=== PATIENT | female | born 1980 | race Hispanic/Latino ===

== ENCOUNTER 2018-06-27 20:01 | Emergency (ER) | payer OTHER, SELFPAY ==
[2018-06-27 21:04] LABS: Absolute Lymphocytes (CBC) 3.2 K/uL (0.7-4.9); Absolute Monocytes 0.6 K/uL (0.1-1.3); Absolute Neutrophil 5.5 K/uL (1.8-8.0); Basophils % 0.7 % (0-1.3); Eosinophils % 1.3 % (0-4.4); Hematocrit 39.6 % (36.0-45.0); Lymphocytes % 33.4 % (15.3-44.8); MCH 34.3 pg (27.0-35.0); MCV 94.8 fL (80-100); MPV 9.5 fL (7.6-11.3); Monocytes % 6.2 % (3.3-12.3); RBC Red Blood Cell Count 4.17 M/uL (3.86-4.86)
[2018-06-27 21:08] LABS: Protime INR 0.9
[2018-06-27 21:23] LABS: ALT/SGPT 23 U/L (12-78); AST/SGOT 18 U/L (15-37); Albumin 3.3 g/dL (3.4-5.0); Alkaline Phosphatase 84 U/L (45-117); BUN Blood Urea Nitrogen 7 mg/dL (7-18); Bicarbonate 27 mmol/L (21-32); Bilirubin Direct < 0.1 mg/dL (0-0.2); Bilirubin Total 0.3 mg/dL (0.2-1.0); CKMB Creatine Kinase MB < 1.0 ng/mL (0.3-3.6); Creatine Phosphokinase 51 U/L (26-192); Glucose Level 87 mg/dL (74-106); Magnesium 1.9 mg/dL (1.8-2.4); Protein, Total 7.1 g/dL (6.4-8.2); Sodium Level 140 mmol/L (136-145); Troponin (Emerg Dept Use Only) < 0.02 ng/mL (0.0-0.045)
--- NOTE | 2018-06-27 21:24 | RAD REPORT ---
EXAM DESCRIPTION: RAD - Chest Single View - 06/27/2018 9:19 pm CLINICAL HISTORY: Chest pain COMPARISON: None. TECHNIQUE: AP portable chest image was obtained 2115 hours . FINDINGS: Lungs are clear. Heart and vasculature are normal. No measurable pleural effusion and no p neumothorax. No gross bony abnormality seen. No acute aortic findings suspected. IMPRESSION: No acute cardiopulmonary process.
--- NOTE | 2018-06-27 21:56 | EDPHYS ---
Physician Documentation [facility] Name: Celina Mcbride Age: 38 yrs Sex: Female : 1980 Arrival Date: 06/27/2018 Time: 20:02 Bed 17 Private MD: Duglas Parada T ED Physician Geovanni Davis HPI: 06/27 21:04 This 38 yrs old Female presents to ER via Ambulatory with complaints of Chest pm1 Pain. 21:04 The patient or guardian reports chest pain that is located primarily in the anterior pm1 aspect of left upper chest. The pain does not radiate. Associated signs and symptoms: Pertinent negatives: abdominal pain, cough, headache, nausea, palpitations, shortness of breath, vomiting. The chest pain is described as Electric. Duration: The patient or guardian reports a single episode, that is still ongoing, Onset of chest pain yesterday morning. Modifying factors: The symptoms are alleviated by nothing. the symptoms are aggravated by nothing. Severity of pain: in the emergency department the pain is unchanged. The patient has not experienced similar symptoms in the past. The patient has not recently seen a physician. OFFICE REP: 20:23 LMP N/A - Hysterectomy ak1 Historical: - Allergies: 20:23 No Known Allergies; ak1 - Home Meds: 20:23 None [Active]; ak1 - PMHx: 20:23 None; ak1 - PSHx: 20:23 Hysterectomy; Cholecystectomy; ak1 - Immunization history:: Adult Immunizations unknown. - Social history:: Smoking status: Patient/guardian denies using tobacco. - Ebola Screening: : No symptoms or risks identified at this time. ROS: 21:04 Constitutional: Negative for fever, chills, and weight loss, Eyes: Negative for injury, pm1 pain, redness, and discharge, ENT: Negative for injury, pain, and discharge, Neck: Negative for injury, pain, and swelling, Respiratory: Negative for shortness of breath, cough, wheezing, and pleuritic chest pain, Abdomen/GI: Negative for abdominal pain, nausea, vomiting, diarrhea, and constipation, Back: Negative for injury and pain, MS/Extremity: Negative for injury and deformity. 21:04 Skin: Negative for injury, rash, and discoloration. 21:04 Neuro: Negative for headache, weakness, numbness, tingling, and seizure. 21:04 Cardiovascular: Positive for chest pain, Negative for edema, orthopnea, palpitations. Exam: 21:04 Constitutional: This is a well developed, well nourished patient who is awake, alert, pm1 and in no acute distress. Head/Face: Normocephalic, atraumatic. Eyes: Pupils equal round and reactive to light, extra-ocular motions intact. Lids and lashes normal. Conjunctiva and sclera are non-icteric and not injected. Cornea within normal limits. Periorbital areas with no swelling, redness, or edema. ENT: Nares patent. No nasal discharge, no septal abnormalities noted. Tympanic membranes are normal and external auditory canals are clear. Oropharynx with no redness, swelling, or masses, exudates, or evidence of obstruction, uvula midline. Mucous membranes moist. Neck: Trachea midline, no thyromegaly or masses palpated, and no cervical lymphadenopathy. Supple, full range of motion without nuchal rigidity, or vertebral point tenderness. No Meningismus. Chest/axilla: Normal chest wall appearance and motion. Nontender with no deformity. No lesions are appreciated. Cardiovascular: Regular rate and rhythm with a normal S1 and S2. No gallops, murmurs, or rubs. Normal PMI, no JVD. No pulse deficits. Respiratory: Lungs have equal breath sounds bilaterally, clear to auscultation and percussion. No rales, rhonchi or wheezes noted. No increased work of breathing, no retractions or nasal flaring. Abdomen/GI: Soft, non-tender, with normal bowel sounds. No distension or tympany. No guarding or rebound. No evidence of tenderness throughout. Back: No spinal tenderness. No costovertebral tenderness. Full range of motion. Skin: Warm, dry with normal turgor. Normal color with no rashes, no lesions, and no evidence of cellulitis. MS/ Extremity: Pulses equal, no cyanosis. Neurovascular intact. Full, normal range of motion. 21:04 Neuro: Orientation: is normal, Motor: moves all fours. Vital Signs: 20:23 BP 117 / 75; Pulse 89; Resp 18; Temp 99.0(O); Pulse Ox 100% on R/A; Weight 108.86 kg ak1 (R); Height 5 ft. 7 in. (170.18 cm) (R); Pain 3/10; 20:55 BP 122 / 72; Pulse 78; Resp 16; Pulse Ox 99% on R/A; mt 21:51 BP 122 / 62; Pulse 69; Resp 18; Pulse Ox 100% on R/A; ea 22:00 BP 120 / 62; Pulse 65; Resp 18; Temp 98.6(O); Pulse Ox 98% on R/A; ea 20:23 Body Mass Index 37.59 (108.86 kg, 170.18 cm) ak1 MDM: 20:32 Patient medically screened. pm1 21:07 Data reviewed: vital signs. Data interpreted: Pulse oximetry: on room air is 99 %. pm1 Interpretation: normal. 21:53 Counseling: I had a detailed discussion with the patient and/or guardian regarding: the pm1 historical points, exam findings, and any diagnostic results supporting the discharge/admit diagnosis, lab results, radiology results, the need for outpatient follow up, to return to the emergency department if symptoms worsen or persist or if there are any questions or concerns that arise at home. 06/27 20:42 Order name: Basic Metabolic Panel; Complete Time: 21:36 pm1 06/27 20:42 Order name: CBC with Diff; Complete Time: 21:36 pm1 06/27 20:42 Order name: Ckmb; Complete Time: 21:36 pm06/27 20:42 Order name: CPK; Complete Time: 21:36 pm1 06/27 20:42 Order name: LFT's; Complete Time: 21:36 pm1 06/27 20:42 Order name: Magnesium; Complete Time: 21:36 pm06/27 20:42 Order name: PT-INR; Complete Time: 21:45 pm06/27 20:42 Order name: Ptt, Activated; Complete Time: 21:45 pm1 06/27 20:42 Order name: Troponin (emerg Dept Use Only); Complete Time: 21:36 pm06/27 20:42 Order name: XRAY Chest (1 view); Complete Time: 21:36 pm1 06/27 20:42 Order name: EKG; Complete Time: 20:42 pm1 06/27 20:42 Order name: Cardiac monitoring; Complete Time: 21:22 pm06/27 20:42 Order name: EKG - Nurse/Tech; Complete Time: 21:20 pm1 06/27 20:42 Order name: IV Saline Lock; Complete Time: 21:22 pm1 06/27 20:42 Order name: Labs collected and sent; Complete Time: 21:22 pm1 06/27 20:42 Order name: O2 Per Protocol; Complete Time: 21:21 pm1 06/27 20:42 Order name: O2 Sat Monitoring; Complete Time: 21:20 pm1 Administered Medications: No medications were administered Disposition: 06/28 03:09 Co-signature as Attending Physician, Geovanni Davis MD. Disposition: 06/27/18 21:56 Discharged to Home. Impression: Chest pain, unspecified. - Condition is Stable. - Discharge Instructions: Nonspecific Chest Pain. - Medication Reconciliation Form, Thank You Letter, Antibiotic Education, Prescription Opioid Use form. - Follow up: Emergency Department; When: As needed; Reason: Worsening of condition. Follow up: Private Physician; When: 2 - 3 days; Reason: Recheck today's complaints, Continuance of care, Re-evaluation by your physician. - Problem is new. - Symptoms have improved. Signatures: Dispatcher [employer] EDMS Kim Bosch RN RN ak1 Rocael Wheeler NP DEPARTMENT SUPERVISOR pm1 Ning Cedillo RN RN ea Starr, Gregory, MD MD Corrections: (The following items were deleted from the chart) 06/27 22:11 21:56 06/27/2018 21:56 Discharged to Home. Impression: Chest pain, unspecified. ea Condition is Stable. Forms are Medication Reconciliation Form, Thank You Letter, Antibiotic Education, Prescription Opioid Use. Follow up: Emergency Department; When: As needed; Reason: Worsening of condition. Follow up: Private Physician; When: 2 - 3 days; Reason: Recheck today's complaints, Continuance of care, Re-evaluation by your physician. Problem is new. Symptoms have improved. pm1
--- NOTE | 2018-06-27 21:56 | ER ---
Nurse's Notes [facility] Name: Celina Mcbride Age: 38 yrs Sex: Female : 1980 Arrival Date: 06/27/2018 Time: 20:02 Bed 17 Private MD: Duglas Parada T Diagnosis: Chest pain, unspecified Presentation: 06/27 20:22 Presenting complaint: Patient states: upper chest pain X2 days. pt denies N/V. denies ak1 SOB. Transition of care: patient was not received from another setting of care. Onset of symptoms was June 26, 2018. Risk Assessment: Do you want to hurt yourself or someone else? Patient reports no desire to harm self or others. Initial Sepsis Screen: Does the patient meet any 2 criteria? No. Patient's initial sepsis screen is negative. Does the patient have a suspected source of infection? No. Patient's initial sepsis screen is negative. Care prior to arrival: None. 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 - Social history:: Smoking status: Patient/guardian denies using tobacco. - Ebola Screening: : No symptoms or risks identified at this time. Screenin:40 Abuse screen: Denies threats or abuse. Nutritional screening: No deficits noted. ea Tuberculosis screening: No symptoms or risk factors identified. Fall Risk None identified. Assessment: 20:40 General: Appears uncomfortable, Behavior is calm, cooperative, appropriate for age. ea Pain: Complains of pain in anterior aspect of left upper chest Pain radiates to anterior aspect of right upper chest and mid-sternal area Pain currently is 7 out of 10 on a pain scale. Quality of pain is described as aching, Pain began yesterday. Neuro: Level of Consciousness is awake, alert, obeys commands, Oriented to person, place, time, situation. Cardiovascular: Heart tones S1 S2 present Patient's skin is warm and dry. Respiratory: Airway is patent Respiratory effort is even, unlabored, Breath sounds are clear bilaterally. GI: Abdomen is non-distended, Bowel sounds present X 4 quads. : No signs and/or symptoms were reported regarding the genitourinary system. Derm: Skin is pink, warm \T\ dry. 21:53 Reassessment: Patient and/or family updated on plan of care and expected duration. Pain ea level reassessed. Patient is alert, oriented x 3, equal unlabored respirations, skin warm/dry/pink. 22:08 Reassessment: Patient and/or family updated on plan of care and expected duration. Pain ea level reassessed. Patient is alert, oriented x 3, equal unlabored respirations, skin warm/dry/pink. Discharge instructions given to patient, verbalized the understanding of instruction. Vital Signs: 20:23 BP 117 / 75; Pulse 89; Resp 18; Temp 99.0(O); Pulse Ox 100% on R/A; Weight 108.86 kg ak1 (R); Height 5 ft. 7 in. (170.18 cm) (R); Pain 3/10; 20:55 BP 122 / 72; Pulse 78; Resp 16; Pulse Ox 99% on R/A; mt 21:51 BP 122 / 62; Pulse 69; Resp 18; Pulse Ox 100% on R/A; ea 22:00 BP 120 / 62; Pulse 65; Resp 18; Temp 98.6(O); Pulse Ox 98% on R/A; ea 20:23 Body Mass Index 37.59 (108.86 kg, 170.18 cm) ak1 ED Course: 20:02 Patient arrived in ED. ds1 20:03 Duglas Parada MD is Private Physician. ds1 20:23 Triage completed. ak1 20:23 Arm band placed on Patient placed in an exam room, on a stretcher, Patient notified of ak1 wait time. 20:25 Ning Cedillo RN is Primary Nurse. ea 20:29 Rocael Wheeler NP is PHCP. pm1 20:29 Geovanni Davis MD is Attending Physician. pm1 20:40 Patient has correct armband on for positive identification. Bed in low position. Call ea light in reach. shelter monitor on. Pulse ox on. NIBP on. 20:40 Patient maintains SpO2 saturation greater than 95% on room air. ea 21:15 Inserted saline lock: 20 gauge in right antecubital area, using aseptic technique. ea Blood collected. 21:19 XRAY Chest (1 view) In Process Unspecified. EDMS 22:09 No provider procedures requiring assistance completed. IV discontinued, intact, ea bleeding controlled, No redness/swelling at site. Pressure dressing applied. Administered Medications: No medications were administered Outcome: 21:56 Discharge ordered by MD. pm1 22:09 Discharged to home ambulatory. ea 22:09 Condition: improved 22:09 Discharge instructions given to patient, Instructed on discharge instructions, follow up and referral plans. Demonstrated understanding of instructions, follow-up care. 22:11 Patient left the ED. ea Signatures: Dispatcher [employer] EDWV Nona Shore ds1 Kim Bosch, RN RN ak1 Rocael Wheeler, RECYCLABLE MATERIALS SORTER RECYCLABLE MATERIALS SORTER pm1 Reanna Rodriguez mt, Elena, RN RN ea
[2018-06-27 22:45] VITALS: BP 120/62; TEMP 98.6; O2SAT 98
--- NOTE | 2018-06-28 19:26 | EKG ---
Test Date: 2018-06-27 Test Time: 20:29:36 [employer] Teacher: REBECCA MEASUREMENT RESULTS: Intervals: Rate: 75 MO: 116 QRSD: 72 QT: 354 QTc: 395 [place]: P: 32 MO: 116 QRS: 21 T: 40 INTERPRETIVE STATEMENTS: Normal sinus rhythm Normal ECG No previous ECG available for comparison Electronically Signed On 06-28-18 19:24:24 CDT by Eric Chase
== END 2018-06-27 22:11 | disposition home or self-care (01) ==
LOC: ER 20:01
DX: R07.9 Chest pain, unspecified (principal)
CPT/HCPCS: 36415; 71045; 80048; 80076; 82550; 82553; 83735; 84484; 85025; 85610; 85730; 93005; 99285

== ENCOUNTER 2018-12-01 12:51 | Emergency (ER) | payer SELFPAY ==
--- NOTE | 2018-12-01 13:53 | EDPHYS ---
Physician Documentation [facility] Name: Celina Mcbride Age: 38 yrs Sex: Female : 1980 Arrival Date: 12/01/2018 Time: 12:54 Bed 23 Private MD: Duglas Parada T ED Physician Robert Jones HPI: 12/01 13:46 This 38 yrs old Female presents to ER via Ambulatory with complaints of Flu ps1 Symptoms, Abdominal Pain. 13:46 patient was seen and evaluated for H.Pylori by her PCP a week ago and was started on ps1 triple therapy. She continued to have fatigue and non-specific abdominal pain so he gave her a shot of antibiotics for possible UTI dx in office. She states that her daughter had flu like symptoms and was treated. The patient then had similar symptoms and came in for evaluation of the flu. She is OOW for Tamiflu as symptoms started 3 days ago. PEREZ, sore throat, cough, body aches, fatigue.. 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 - Social history:: Smoking status: Patient/guardian denies using tobacco. - Ebola Screening: : Patient negative for fever greater than or equal to 101.5 degrees Fahrenheit, and additional compatible Ebola Virus Disease symptoms Patient denies exposure to infectious person Patient denies travel to an Ebola-affected area in the 21 days before illness onset No symptoms or risks identified at this time. ROS: 13:46 Eyes: Negative for injury, pain, redness, and discharge, ENT: Negative for injury, ps1 pain, and discharge, Cardiovascular: Negative for chest pain, palpitations, and edema, Respiratory: Negative for shortness of breath, cough, wheezing, and pleuritic chest pain, Abdomen/GI: Negative for abdominal pain, nausea, vomiting, diarrhea, and constipation, MS/Extremity: Negative for injury and deformity, Skin: Negative for injury, rash, and discoloration, Neuro: Negative for headache, weakness, numbness, tingling, and seizure. 13:46 Constitutional: Positive for body aches, chills, fatigue, fever, poor PO intake. Exam: 13:46 Constitutional: This is a well developed, well nourished patient who is awake, alert, ps1 and in no acute distress. Head/Face: Normocephalic, atraumatic. Eyes: Pupils equal round and reactive to light, extra-ocular motions intact. Lids and lashes normal. Conjunctiva and sclera are non-icteric and not injected. Chest/axilla: Normal chest wall appearance and motion. Nontender with no deformity. No lesions are appreciated. Cardiovascular: Regular rate and rhythm. No gallops, murmurs, or rubs. Normal PMI, no JVD. No pulse deficits. Respiratory: Lungs have equal breath sounds bilaterally, clear to auscultation and percussion. No rales, rhonchi or wheezes noted. No increased work of breathing, no retractions or nasal flaring. Abdomen/GI: Soft, non-tender, with normal bowel sounds. No distension or tympany. No guarding or rebound. No evidence of tenderness throughout. Skin: Warm, dry with normal turgor. Normal color with no rashes, no lesions, and no evidence of cellulitis. MS/ Extremity: Pulses equal, no cyanosis. Neurovascular intact. Full, normal range of motion. Neuro: Awake and alert, GCS 15, oriented to person, place, time, and situation. Cranial nerves II-XII grossly intact. Sensory grossly intact. Psych: Awake, alert, with orientation to person, place and time. Behavior, mood, and affect are within normal limits. Vital Signs: 13:12 BP 139 / 91; Pulse 104; Resp 18 S; Temp 99.6(O); Pulse Ox 96% on R/A; Weight 106.59 kg; iw Height 5 ft. 6 in. (167.64 cm); Pain 0/10; 13:48 BP 113 / 91; Pulse 100; Resp 20; Temp 99.6(O); Pulse Ox 97% on R/A; tl3 13:12 Body Mass Index 37.93 (106.59 kg, 167.64 cm) iw MDM: 13:52 Patient medically screened. ps1 12/01 13:39 Order name: Urine Dipstick--Ancillary (enter results) bd 12/01 13:39 Order name: Urine --Ancillary (enter results) bd Administered Medications: 13:47 Drug: Ibuprofen 600 mg Route: PO; tl3 14:19 Follow up: Response: No adverse reaction tl3 Disposition: 12/01/18 13:52 Discharged to Home. Impression: Influenza-like illness. - Condition is Stable. - Discharge Instructions: Influenza, Adult. - Prescriptions for promethazine- codeine 6.25-10 mg/5 mL Oral syrup - take 5 milliliter by ORAL route every 4-6 hours as needed, not to exceed 30 mL in 24 hours; 120 milliliter. Anaprox DS 550 mg Oral Tablet - take 1 tablet by ORAL route every 12 hours As needed; 20 tablet. chlorpheniramine maleate 4 mg Oral Tablet - take 1 tablet by ORAL route every 6 hours As needed; 30 tablet. - Medication Reconciliation Form, Thank You Letter, Antibiotic Education, Prescription Opioid Use form. - Follow up: Duglas Parada MD; When: As needed; Reason: Further diagnostic work-up, Recheck today's complaints, Re-evaluation by your physician. Follow up: Emergency Department; When: As needed; Reason: Worsening of condition. - Problem is new. - Symptoms are unchanged. Signatures: Dispatcher [employer] Rubina Maddox RN RN iw Robert Jones MD MD ps1 Salma Boucher RN RN tl3 Corrections: (The following items were deleted from the chart) 14:18 13:52 12/01/2018 13:52 Discharged to Home. Impression: Influenza-like illness. tl3 Condition is Stable. Forms are Medication Reconciliation Form, Thank You Letter, Antibiotic Education, Prescription Opioid Use. Follow up: Duglas Parada; When: As needed; Reason: Further diagnostic work-up, Recheck today's complaints, Re-evaluation by your physician. Follow up: Emergency Department; When: As needed; Reason: Worsening of condition. Problem is new. Symptoms are unchanged. ps1
--- NOTE | 2018-12-01 13:53 | ER ---
Nurse's Notes [facility] Name: Celina Mcbride Age: 38 yrs Sex: Female : 1980 Arrival Date: 12/01/2018 Time: 12:54 Bed 23 Private MD: Duglas Parada T Diagnosis: Influenza-like illness Presentation: 12/01 13:08 Presenting complaint: Patient states: is being treated for H. Pylori by provider at a iw clinic in [place], currently on amoxicillin and clarithromycin, also had 2 shots of antibiotics for a UTI, still feeling dizzy and just doesn't feel right, c/o cough, fever, chest pian from coughing. Transition of care: patient was not received from another setting of care. Onset of symptoms was November 12, 2018. Risk Assessment: Do you want to hurt yourself or someone else? Patient reports no desire to harm self or others. Initial Sepsis Screen: Does the patient meet any 2 criteria? No. Patient's initial sepsis screen is negative. Does the patient have a suspected source of infection? No. Patient's initial sepsis screen is negative. Care prior to arrival: None. 13:08 Method Of Arrival: Ambulatory iw 13:08 Acuity: AVELINO 3 iw Triage Assessment: 14:19 General: Behavior is calm, cooperative, appropriate for age. 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 - Social history:: Smoking status: Patient/guardian denies using tobacco. - Ebola Screening: : Patient negative for fever greater than or equal to 101.5 degrees Fahrenheit, and additional compatible Ebola Virus Disease symptoms Patient denies exposure to infectious person Patient denies travel to an Ebola-affected area in the 21 days before illness onset No symptoms or risks identified at this time. Screenin:48 Abuse screen: Denies threats or abuse. Nutritional screening: No deficits noted. tl3 Tuberculosis screening: No symptoms or risk factors identified. Fall Risk None identified. Assessment: 13:48 General: Appears uncomfortable, well groomed, well developed, well nourished. Pain: tl3 Complains of pain in pain with cough. Neuro: Level of Consciousness is awake, alert, obeys commands, Oriented to person, place, time, situation, Appropriate for age. Cardiovascular: Patient's skin is warm and dry. Respiratory: Reports cough that is dry, hacking, worse at night Airway is patent Respiratory effort is even, unlabored, Respiratory pattern is regular, symmetrical. GI: Bowel sounds present X 4 quads. Abdomen is tender to palpation. : Urine is. EENT: Nares are clear. Derm: Skin is flushed. Musculoskeletal: No signs and/or symptoms reported regarding the musculoskeletal system. 14:15 Reassessment: No changes from previously documented assessment. Patient and/or family tl3 updated on plan of care and expected duration. Pain level reassessed. Patient is alert, oriented x 3, equal unlabored respirations, skin warm/dry/pink. pt being discharged. Vital Signs: 13:12 BP 139 / 91; Pulse 104; Resp 18 S; Temp 99.6(O); Pulse Ox 96% on R/A; Weight 106.59 kg; iw Height 5 ft. 6 in. (167.64 cm); Pain 0/10; 13:48 BP 113 / 91; Pulse 100; Resp 20; Temp 99.6(O); Pulse Ox 97% on R/A; tl3 13:12 Body Mass Index 37.93 (106.59 kg, 167.64 cm) iw ED Course: 12:54 Patient arrived in ED. mr 12:54 Duglas Parada MD is Private Physician. mr 13:04 Salma Boucher, RN is Primary Nurse. tl3 13:11 Triage completed. iw 13:12 Arm band placed on. iw 13:21 Robert Jones MD is Attending Physician. ps1 13:48 Patient has correct armband on for positive identification. Placed in gown. Bed in low tl3 position. Call light in reach. Side rails up X 1. Pulse ox on. NIBP on. Warm blanket given. 13:48 No provider procedures requiring assistance completed. tl3 13:51 Duglas Parada MD is Referral Physician. ps1 14:15 Patient did not have IV access during this emergency room visit. tl3 Administered Medications: 13:47 Drug: Ibuprofen 600 mg Route: PO; tl3 14:19 Follow up: Response: No adverse reaction tl3 Outcome: 13:52 Discharge ordered by . ps1 14:15 Discharged to home ambulatory. tl3 14:15 Condition: stable 14:15 Discharge instructions given to patient, Instructed on discharge instructions, follow up and referral plans. medication usage, Demonstrated understanding of instructions, follow-up care, medications, Prescriptions given X 3. 14:18 Patient left the ED. tl3 Signatures: Sheree Armstrong Irene, RN RN iw Robert Jones MD MD ps1 Salma Boucher RN RN tl3
[2018-12-01] MEDS ORDERED: IBUPROFEN 400 MG TAB ONE (13:57)
[2018-12-01] MEDS ORDERED: IBUPROFEN 200 MG TAB PO ONE (13:58)
[2018-12-01 14:20] LABS: Urine Blood 2+ (NEG); Urine Glucose NEGATIVE (NEG); Urine Protein TRACE (NEG); Urine Specific Gravity >1.030 (1.005-1.030)
[2018-12-01 14:36] VITALS: TEMP 99.6
[2018-12-01 14:39] VITALS: BP 113/91; O2SAT 97
== END 2018-12-01 14:18 | disposition home or self-care (01) ==
LOC: ER 12:51
DX: J11.1 Influenza due to unidentified influenza virus with other respiratory manifestations (principal)
CPT/HCPCS: 81003; 81025; 99283

== ENCOUNTER 2019-04-02 23:45 | Emergency (ER) | payer SELFPAY ==
[2019-04-03 01:43] LABS: Absolute Lymphocytes (CBC) 3.4 K/uL (0.7-4.9); Basophils % 0.5 % (0-1.3); Eosinophils % 1.2 % (0-4.4); Hematocrit 41.1 % (36.0-45.0); Lymphocytes % 29.2 % (15.3-44.8); MPV 9.5 fL (7.6-11.3); Monocytes % 6.2 % (3.3-12.3); RBC Red Blood Cell Count 4.29 M/uL (3.86-4.86)
[2019-04-03 01:54] LABS: Potassium 3.3 mmol/L (3.5-5.1)
--- NOTE | 2019-04-03 02:56 | ER ---
Nurse's Notes [facility] Name: Celina Mcbride Age: 39 yrs Sex: Female : 1980 Arrival Date: 04/02/2019 Time: 23:47 Bed 13 Private MD: Duglas Parada T Diagnosis: Fluid retention Presentation: 04/02 23:57 Presenting complaint: Patient states: "I work out of town and over the last two weeks ls4 Mei been waking up puffy.". Transition of care: patient was not received from another setting of care. Onset of symptoms is unknown. Risk Assessment: Do you want to hurt yourself or someone else? Patient reports no desire to harm self or others. Initial Sepsis Screen: Does the patient meet any 2 criteria? No. Patient's initial sepsis screen is negative. Does the patient have a suspected source of infection? No. Patient's initial sepsis screen is negative. Care prior to arrival: None. 23:57 Method Of Arrival: Ambulatory ls4 23:57 Acuity: AVELINO 4 ls4 Triage Assessment: 23:59 General: Appears in no apparent distress. comfortable, obese, well groomed, Behavior is ls4 calm, cooperative. Pain: Denies pain. GI: Reports cramping, diarrhea, "from the antibiotics Im on for H. pylori. : No deficits noted. No signs and/or symptoms were reported regarding the genitourinary system. Derm: No deficits noted. Skin is pink, warm \\T\\ dry. Musculoskeletal: No deficits noted. 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 pylori; ls4 - PSHx: 23:59 Hysterectomy; Cholecystectomy; ls4 - Immunization history:: Adult Immunizations unknown. - Social history:: Smoking status: Patient/guardian denies using tobacco. - Ebola Screening: : Patient negative for fever greater than or equal to 101.5 degrees Fahrenheit, and additional compatible Ebola Virus Disease symptoms Patient denies exposure to infectious person Patient denies travel to an Ebola-affected area in the 21 days before illness onset No symptoms or risks identified at this time. Screenin/23 00:02 Abuse screen: Denies threats or abuse. Denies injuries from another. Nutritional ls4 screening: No deficits noted. Tuberculosis screening: No symptoms or risk factors identified. Fall Risk None identified. Assessment: 00:01 Reassessment: see triage assessment. GI: Reports cramping, diarrhea, not new. ls4 01:41 Reassessment: Patient appears in no apparent distress at this time. No changes from ls4 previously documented assessment. Patient is alert, oriented x 3, equal unlabored respirations, skin warm/dry/pink. GI: No deficits noted. 02:15 Reassessment: Patient appears in no apparent distress at this time. No changes from ls4 previously documented assessment. Patient is alert, oriented x 3, equal unlabored respirations, skin warm/dry/pink. 03:16 Reassessment: Patient appears in no apparent distress at this time. Patient is alert, rr5 oriented x 3, equal unlabored respirations, skin warm/dry/pink. discharge instruction given and explained without complaints made. Patient denies pain at this time. Vital Signs: 00:00 BP 126 / 71; Pulse 78; Resp 14; Temp 98.7(O); Pulse Ox 99% on R/A; Weight 113.4 kg; ls4 Height 5 ft. 4 in. (162.56 cm); Pain 0/10; 01:02 BP 120 / 83; Pulse 75; Resp 16; Temp 98.4(O); Pulse Ox 99% on R/A; Pain 0/10; ls4 01:41 BP 118 / 76; Pulse 74; Resp 16; Pulse Ox 99% on R/A; Pain 0/10; ls4 02:14 BP 115 / 59; Pulse 72; Resp 14; Pulse Ox 99% on R/A; Pain 0/10; ls4 03:15 BP 116 / 75; Pulse 71; Resp 17; Temp 97.8; Pulse Ox 100% on R/A; rr5 00:00 Body Mass Index 42.91 (113.40 kg, 162.56 cm) ls4 ED Course: 04/02 23:47 Patient arrived in ED. am2 23:47 Duglas Parada MD is Private Physician. am2 23:50 Peace Sharma, RN is Primary Nurse. ls4 23:58 Triage completed. ls4 04/03 00:00 Arm band placed on right wrist. ls4 00:02 Patient has correct armband on for positive identification. Bed in low position. Call ls4 light in reach. Side rails up X 1. Pulse ox on. NIBP on. Verbal reassurance given. 00:28 Jose Ng MD is Attending Physician. pkl 01:11 No provider procedures requiring assistance completed. ls4 01:20 X-ray completed. Portable x-ray completed in exam room. Patient tolerated procedure tm4 well. 01:27 XRAY CXR (1 view) In Process Unspecified. EDMS 01:42 Initial lab(s) drawn, by me, sent to lab. Inserted saline lock: 20 gauge in right ls4 antecubital area, using aseptic technique. Blood collected. 02:54 Duglas Parada MD is Referral Physician. pkl 03:17 IV discontinued, intact, bleeding controlled, No redness/swelling at site. Pressure rr5 dressing applied. Administered Medications: 03:13 Drug: LaSIX 40 mg Route: PO; rr5 03:14 Follow up: Response: Medication administered at discharge. rr5 03:13 Drug: K-Dur 20 mEq Route: PO; rr5 03:15 Follow up: Response: Medication administered at discharge. rr5 Outcome: 02:55 Discharge ordered by . pkl 03:17 Discharged to home ambulatory, with family. rr5 03:17 Condition: stable 03:17 Discharge instructions given to patient, Instructed on discharge instructions, follow up and referral plans. medication usage, Demonstrated understanding of instructions, follow-up care, medications, Prescriptions given X 2. 03:17 Patient left the ED. rr5 Signatures: Dispatcher [employer] EDNH Jose Ng MD MD pkl Elisabeth Segundo tm4 Maura Pandey am2 Peace Sharma, RN RN ls4 Theodore Tellez, RN RN rr5
--- NOTE | 2019-04-03 02:56 | EDPHYS ---
Physician Documentation [facility] Name: Celina Mcbride Age: 39 yrs Sex: Female : 1980 Arrival Date: 04/02/2019 Time: 23:47 Bed 13 Private MD: Duglas Parada T ED Physician Jose Ng HPI: 04/03 01:11 This 39 yrs old Female presents to ER via Ambulatory with complaints of pkl swelling all over, Nausea, General Weakness. 01:11 Swelling face, hands and legs. 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 pylori; ls4 - PSHx: 23:59 Hysterectomy; Cholecystectomy; ls4 - Immunization history:: Adult Immunizations unknown. - Social history:: Smoking status: Patient/guardian denies using tobacco. - Ebola Screening: : Patient negative for fever greater than or equal to 101.5 degrees Fahrenheit, and additional compatible Ebola Virus Disease symptoms Patient denies exposure to infectious person Patient denies travel to an Ebola-affected area in the 21 days before illness onset No symptoms or risks identified at this time. ROS: 04/03 01:11 Eyes: Negative for injury, pain, redness, and discharge, ENT: Negative for injury, pkl pain, and discharge, Neck: Negative for injury, pain, and swelling, Cardiovascular: Negative for chest pain, palpitations, and edema, Respiratory: Negative for shortness of breath, cough, wheezing, and pleuritic chest pain, Abdomen/GI: Negative for abdominal pain, nausea, vomiting, diarrhea, and constipation, Back: Negative for injury and pain, : Negative for injury, bleeding, discharge, and swelling. 01:14 MS/extremity: Positive for swelling, of the swelling hands and legs. pkl 01:14 Skin: Negative for rash. 01:14 Neuro: Negative for altered mental status. Exam: 01:14 Head/Face: Normocephalic, atraumatic. Eyes: Pupils equal round and reactive to light, pkl extra-ocular motions intact. Lids and lashes normal. Conjunctiva and sclera are non-icteric and not injected. Cornea within normal limits. Periorbital areas with no swelling, redness, or edema. ENT: Nares patent. No nasal discharge, no septal abnormalities noted. Tympanic membranes are normal and external auditory canals are clear. Oropharynx with no redness, swelling, or masses, exudates, or evidence of obstruction, uvula midline. Mucous membranes moist. Neck: Trachea midline, no thyromegaly or masses palpated, and no cervical lymphadenopathy. Supple, full range of motion without nuchal rigidity, or vertebral point tenderness. No Meningismus. Chest/axilla: Normal chest wall appearance and motion. Nontender with no deformity. No lesions are appreciated. Cardiovascular: Regular rate and rhythm with a normal S1 and S2. No gallops, murmurs, or rubs. Normal PMI, no JVD. No pulse deficits. Respiratory: Lungs have equal breath sounds bilaterally, clear to auscultation and percussion. No rales, rhonchi or wheezes noted. No increased work of breathing, no retractions or nasal flaring. Abdomen/GI: Soft, non-tender, with normal bowel sounds. No distension or tympany. No guarding or rebound. No evidence of tenderness throughout. Back: No spinal tenderness. No costovertebral tenderness. Full range of motion. Skin: Warm, dry with normal turgor. Normal color with no rashes, no lesions, and no evidence of cellulitis. Neuro: Awake and alert, GCS 15, oriented to person, place, time, and situation. Cranial nerves II-XII grossly intact. Motor strength 5/5 in all extremities. Sensory grossly intact. Cerebellar exam normal. Normal gait. 01:14 Musculoskeletal/extremity: Extremities: grossly normal except: noted in the both hands: swelling, noted in the both legs: swelling. Vital Signs: 00:00 BP 126 / 71; Pulse 78; Resp 14; Temp 98.7(O); Pulse Ox 99% on R/A; Weight 113.4 kg; ls4 Height 5 ft. 4 in. (162.56 cm); Pain 0/10; 01:02 BP 120 / 83; Pulse 75; Resp 16; Temp 98.4(O); Pulse Ox 99% on R/A; Pain 0/10; ls4 01:41 BP 118 / 76; Pulse 74; Resp 16; Pulse Ox 99% on R/A; Pain 0/10; ls4 02:14 BP 115 / 59; Pulse 72; Resp 14; Pulse Ox 99% on R/A; Pain 0/10; ls4 03:15 BP 116 / 75; Pulse 71; Resp 17; Temp 97.8; Pulse Ox 100% on R/A; rr5 00:00 Body Mass Index 42.91 (113.40 kg, 162.56 cm) ls4 MDM: 00:08 Patient medically screened. cp 02:54 Data reviewed: vital signs, nurses notes, lab test result(s). pkl 02:55 Patient medically screened. pkl 04/03 01:08 Order name: CBC with Diff; Complete Time: 01:54 pkl 04/03 01:08 Order name: Chem 7; Complete Time: 01:55 pkl 04/03 01:08 Order name: D-Dimer; Complete Time: 02:50 pkl 04/03 01:08 Order name: XRAY CXR (1 view) pkl Administered Medications: 03:13 Drug: LaSIX 40 mg Route: PO; rr5 03:14 Follow up: Response: Medication administered at discharge. rr5 03:13 Drug: K-Dur 20 mEq Route: PO; rr5 03:15 Follow up: Response: Medication administered at discharge. rr5 Disposition: 04/03/19 02:55 Discharged to Home. Impression: Fluid retention. - Condition is Stable. - Prescriptions for Lasix 40 mg Oral Tablet - take 1 tablet by ORAL route once daily for 5 days; 5 tablet. Potassium Chloride 10 mEq Oral Capsule, Sustained Release - take 1 tablet by ORAL route once daily; 5 tablet. - Medication Reconciliation Form, Thank You Letter, Antibiotic Education, Prescription Opioid Use form. - Follow up: Duglas Parada MD; When: 5 - 6 days; Reason: Re-evaluation by your physician. - Problem is new. - Symptoms have improved. Signatures: Dispatcher [employer] EDMS Jose Ng MD MD pkl Rodo Kasper PA PA cp Stewart, Lisa RN RN ls4 Theodore Tellez RN RN rr5 Corrections: (The following items were deleted from the chart) 03:17 02:55 04/03/2019 02:55 Discharged to Home. Impression: Fluid retention. Condition is rr5 Stable. Forms are Medication Reconciliation Form, Thank You Letter, Antibiotic Education, Prescription Opioid Use. Follow up: Duglas Parada; When: 5 - 6 days; Reason: Re-evaluation by your physician. Problem is new. Symptoms have improved. pkl
[2019-04-03] MEDS ORDERED: POTASSIUM CL SA 10 MEQ TAB PO ONE (03:22)
[2019-04-03] MEDS ORDERED: FUROSEMIDE 20 MG TABLET ONE (03:22)
[2019-04-03 03:38] VITALS: BP 116/75; TEMP 97.8; O2SAT 100
--- NOTE | 2019-04-03 08:35 | RAD REPORT ---
EXAM DESCRIPTION: RAD - Chest Single View - 04/03/2019 1:22 am CLINICAL HISTORY: Shortness of breath COMPARISON: June 2018 TECHNIQUE: AP portable chest image was obtained 0116 hours . FINDINGS: Lungs are clear. Heart and vasculature are normal. No measurable pleural effusion and no p neumothorax. No acute bony abnormality seen. No acute aortic findings suspected. IMPRESSION: No acute cardiopulmonary process.
== END 2019-04-03 03:17 | disposition home or self-care (01) ==
LOC: ER 23:45
DX: R60.9 Edema, unspecified (principal)
CPT/HCPCS: 36415; 71045; 80048; 85025; 85379; 99284

== ENCOUNTER 2021-05-21 20:59 | Emergency (ER) | payer BC ==
--- OUTSIDE RECORDS SUMMARY | 2021-05-21 21:02 | XMS REPORT | Continuity of Care Document ---
:1980 Author Organization [facility] t Address [address] [place] [address] [address] [place] [address] Care Team Providers Name Role Phone Sal Fierro Attending Clinician Albert Mendez DO Attending Clinician Problems This patient has no known problems. Allergies, Adverse Reactions, Alerts This patient has no known allergies or adverse reactions. Medications This patient has no known medications. Procedures This patient has no known procedures. Encounters Start End Encounter Admission Attending Care Care Encounter Source Date/Time Date/Time Type Type Clinicians Facility Department ID 2020-05-29 2020-05-30 Emergency Angeline [facility] [id number] 21:27:00 02:37:00 Aldo Rojas [id number] [place] [id number] [place] [id number] 2020-05-26 2020-05-26 Emergency Andrea [facility] [id number] 11:53:00 14:48:00 Roxie Rojas [id number] [place] [id number] [place] [id number] Results This patient has no known results.
[2021-05-21 22:48] LABS: Urine Blood Trace-lysed (Negative); Urine Glucose Negative (Negative); Urine Protein Negative (Negative); Urine Specific Gravity 1.015 (1.005-1.030)
[2021-05-21 23:07] LABS: Urine Specific Gravity/Preg 1.015 (1.005-1.030)
[2021-05-21 23:46] LABS: Absolute Lymphocytes (CBC) 2.8 K/uL (0.7-4.9); Basophils % 0.8 % (0-1.3); Hematocrit 40.1 % (36.0-45.0); MPV 7.8 fL (7.6-11.3); RBC Red Blood Cell Count 4.27 M/uL (3.86-4.86)
[2021-05-21 23:57] LABS: Albumin 3.6 g/dL (3.4-5.0); Bilirubin Direct 0.3 mg/dL (0-0.2); Protein, Total 7.5 g/dL (6.4-8.2)
[2021-05-22] MEDS ORDERED: ONDANSETRON 4 MG/2 ML VIAL ONE (00:24)
[2021-05-22] MEDS ORDERED: MORPHINE 4 MG/ML SYR ONE (00:24)
--- NOTE | 2021-05-22 02:24 | EDPHYS ---
Physician Documentation [facility] Name: Celina Mcbride Age: 41 yrs Sex: Female : 1980 Arrival Date: 05/21/2021 Time: 21:53 Bed 10 Private MD: NICOLE Physician Rodo Jordan HPI: 05/22 00:00 This 41 yrs old Female presents to ER via Ambulatory with complaints of Back jr8 Pain, Abdominal Pain. 00:00 The patient presents with abdominal pain in the upper abdomen. Onset: The jr8 symptoms/episode began/occurred acutely, today. The symptoms radiate to right back. Associated signs and symptoms: Pertinent positives: nausea. The symptoms are described as sharp. Modifying factors: The symptoms are alleviated by nothing, the symptoms are aggravated by nothing. Severity of pain: At its worst the pain was moderate in the emergency department the pain is unchanged. The patient has not experienced similar symptoms in the past. The patient has not recently seen a physician. 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 pylori; Depression; Insomnia; kg - PSHx: 22:05 Cholecystectomy; Total abdominal hysterectomy; kg - Immunization history:: Adult Immunizations not up to date, Client reports receiving the 2nd dose of the Covid vaccine, Client reports receiving the 1st dose of the Covid vaccine, [facility] Client reports receiving the 2nd dose of the Covid vaccine, Date received: March 04, 2021 [facility] Client reports receiving the 1st dose of the Covid vaccine, February 06, 2021. - Social history:: Smoking status: Patient denies any tobacco usage or history of. Patient uses alcohol, occasionally. ROS: 05/22 00:00 Eyes: Negative for injury, pain, redness, and discharge, ENT: Negative for injury, jr8 pain, and discharge, Neck: Negative for injury, pain, and swelling, Cardiovascular: Negative for chest pain, palpitations, and edema, Respiratory: Negative for shortness of breath, cough, wheezing, and pleuritic chest pain, Back: Negative for injury and pain, MS/Extremity: Negative for injury and deformity, Skin: Negative for injury, rash, and discoloration, Neuro: Negative for headache, weakness, numbness, tingling, and seizure. Abdomen/GI: Positive for abdominal pain, nausea, Negative for vomiting, diarrhea, abdominal distension, hematemesis, black/tarry stool, rectal pain, rectal bleeding, bowel incontinence, flatulence. Exam: 00:00 Constitutional: This is a well developed, well nourished patient who is awake, alert, jr8 and in no acute distress. ENT: Nares patent. No nasal discharge, no septal abnormalities noted. Tympanic membranes are normal and external auditory canals are clear. Oropharynx with no redness, swelling, or masses, exudates, or evidence of obstruction, uvula midline. Mucous membranes moist. Cardiovascular: Regular rate and rhythm with a normal S1 and S2. No gallops, murmurs, or rubs. Normal PMI, no JVD. No pulse deficits. Respiratory: Lungs have equal breath sounds bilaterally, clear to auscultation and percussion. No rales, rhonchi or wheezes noted. No increased work of breathing, no retractions or nasal flaring. Back: No spinal tenderness. No costovertebral tenderness. Full range of motion. Skin: Warm, dry with normal turgor. Normal color with no rashes, no lesions, and no evidence of cellulitis. MS/ Extremity: Pulses equal, no cyanosis. Neurovascular intact. Full, normal range of motion. Neuro: Awake and alert, GCS 15, oriented to person, place, time, and situation. Cranial nerves II-XII grossly intact. Motor strength 5/5 in all extremities. Sensory grossly intact. 00:00 Abdomen/GI: Inspection: abdomen appears normal, Bowel sounds: active, all quadrants, Palpation: soft, in all quadrants, moderate abdominal tenderness, in the epigastric area and right upper quadrant, mass, is not appreciated, rebound tenderness, is not appreciated, voluntary guarding, is elicited in all quadrants, involuntary guarding, is not appreciated, no appreciated organomegaly, Indicators: McBurney's point is not tender, Wolfe's sign is negative, Rovsing's sign is negative, Liver: tenderness, is not appreciated. Vital Signs: 05/21 22:04 Pulse 54; Resp 20; Temp 97.5(TE); Pulse Ox 100% on R/A; Weight 98.88 kg (R); Height 5 kg ft. 5 in. (165.10 cm); Pain 04/20; 05/22 01:13 BP 106 / 54; Pulse 79; Resp 18; Pulse Ox 100% on R/A; lp1 05/21 22:04 Body Mass Index 36.28 (98.88 kg, 165.10 cm) kg MDM: 05/21 23:05 Patient medically screened. jr8 05/22 01:59 Data reviewed: vital signs, nurses notes, lab test result(s), radiologic studies, CT jr8 scan. Data interpreted: Pulse oximetry: on room air is 100 %. Interpretation: normal. Counseling: I had a detailed discussion with the patient and/or guardian regarding: the historical points, exam findings, and any diagnostic results supporting the discharge/admit diagnosis, lab results, radiology results, the need for outpatient follow up, a family practitioner, a resource engineer, to return to the emergency department if symptoms worsen or persist or if there are any questions or concerns that arise at home. Special discussion: Based on the patient's Hx, exam, and Dx evaluation, there is no indication for emergent surgery or inpatient Tx. It is understood by the patient/guardian that if the Sx's persist or worsen they need to return immediately for re-evaluation. 05/21 22:13 Order name: Basic Metabolic Panel; Complete Time: 00:02 kg 05/21 22:13 Order name: CBC with Diff; Complete Time: 00:02 kg 05/21 22:13 Order name: Hepatic Function; Complete Time: 00:02 kg 05/21 22:13 Order name: Lipase; Complete Time: 00:02 kg 05/21 22:48 Order name: Urine Dipstick-Ancillary EDMS 05/21 22:51 Order name: Urine --Ancillary (enter results); Complete Time: 23:11 mw2 05/21 22:13 Order name: IV Saline Lock; Complete Time: 00:04 kg 05/21 22:13 Order name: Labs collected and sent; Complete Time: 00:05 kg 05/21 22:13 Order name: Urine Dipstick-Ancillary (obtain specimen); Complete Time: 00:05 kg 05/21 23:47 Order name: CT Abd/Pelvis - IV Contrast Only jr8 Administered Medications: 00:11 Drug: morphine 4 mg Route: IVP; Site: right antecubital; lp1 00:19 Follow up: Response: No adverse reaction lp1 00:11 Drug: Zofran (Ondansetron) 4 mg Route: IVP; Site: right antecubital; lp1 00:19 Follow up: Response: No adverse reaction lp1 01:16 Follow up: Response: No adverse reaction lp1 03:15 Drug: GI Cocktail without - (Maalox Suspension 30 ml, Lidocaine Liquid 2 % 15 lp1 ml) Route: PO; 03:53 Follow up: Response: No adverse reaction lp1 Disposition: 07:52 Co-signature as Attending Physician, Rodo Jordan MD I agree with the assessment and donald plan of care. Disposition Summary: 05/22/21 02:23 Discharge Ordered Location: Home [facility] Problem: new jr8 Symptoms: have improved jr8 Condition: Stable jr8 Diagnosis - Epigastric pain jr8 Followup: jr8 - With: Coy Vazquez MD - When: 2 - 3 days - Reason: Recheck today's complaints, Continuance of care, Re-evaluation by your physician Discharge Instructions: - Discharge Summary Sheet jr8 - Abdominal Pain, Adult jr8 - Gastritis, Adult jr8 Forms: - Medication Reconciliation Form jr8 - Thank You Letter jr8 - Antibiotic Education jr8 - Prescription Opioid Use jr8 Prescriptions: - omeprazole 40 mg Oral capsule,delayed release(DR/EC) - take 1 capsule by ORAL route once daily before a meal; 20 capsule; Refills: 0, jr8 Product Selection Permitted - Zofran 4 mg Oral Tablet - take 1 tablet by ORAL route every 12 hours As needed; 20 tablet; Refills: 0, jr8 Product Selection Permitted - dicyclomine 20 mg Oral Tablet - take 1 tablet by ORAL route 3 times per day As needed; 20 tablet; Refills: 0, jr8 Product Selection Permitted Signatures: Dispatcher [employer] Rodo Aceves MD MD cha Pena, Laura, RN RN lp1 Lorenzo Huerta PA PA jr8 Toshia Hdz RN RN kg
--- NOTE | 2021-05-22 02:24 | ER ---
Nurse's Notes [facility] Name: Celina Mcbride Age: 41 yrs Sex: Female : 1980 Arrival Date: 05/21/2021 Time: 21:53 Bed 10 Private MD: Diagnosis: Epigastric pain Presentation: 05/21 22:04 Chief complaint: Patient states: RLQ abdominal pain that radiates to right flank and kg back x 1 wk. Coronavirus screen: Client denies travel out of the [place] in the last 14 days. At this time, unable to obtain information related to travel outside the [place] At this time, the client does not indicate any symptoms associated with coronavirus-19. Ebola Screen: Patient negative for fever greater than or equal to 101.5 degrees Fahrenheit, and additional compatible Ebola Virus Disease symptoms Patient denies exposure to infectious person. Patient denies travel to an Ebola-affected area in the 21 days before illness onset. Initial Sepsis Screen: Does the patient meet any 2 criteria? No. Patient's initial sepsis screen is negative. Does the patient have a suspected source of infection? No. Patient's initial sepsis screen is negative. Risk Assessment: Do you want to hurt yourself or someone else? Patient reports no desire to harm self or others. Onset of symptoms was May 14, 2021. 22:04 Method Of Arrival: Ambulatory kg 22:04 Acuity: AVELINO 3 kg 22:12 Chief complaint: Patient states: Pt stated it helps the pain when she presses down on kg her side. Triage Assessment: 22:07 General: Appears in no apparent distress. Behavior is calm, cooperative, appropriate kg for age, quiet. Pain: Complains of pain in right lower quadrant Pain radiates to Right flank, Right lower back Pain currently is 5 out of 10 on a pain scale. at worst was 8 out of 10 on a pain scale. level that patient reports is acceptable is 3 out of 10 on a pain scale. Quality of pain is described as aching, crampy, Constant, Dull. GI: Reports lower abdominal pain, bloating. Musculoskeletal:. 23:29 Musculoskeletal: Circulation, motion, and sensation intact. Range of motion: intact in lp1 all extremities. 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 pylori; Depression; Insomnia; kg - PSHx: 22:05 Cholecystectomy; Total abdominal hysterectomy; kg - Immunization history:: Adult Immunizations not up to date, Client reports receiving the 2nd dose of the Covid vaccine, Client reports receiving the 1st dose of the Covid vaccine, Moderna Client reports receiving the 2nd dose of the Covid vaccine, Date received: March 04, 2021 Moderna Client reports receiving the 1st dose of the Covid vaccine, February 06, 2021. - Social history:: Smoking status: Patient denies any tobacco usage or history of. Patient uses alcohol, occasionally. Screenin:48 Abuse screen: Denies threats or abuse. Nutritional screening: Has had N/V for 3 or more lp1 days. Tuberculosis screening: No symptoms or risk factors identified. Fall Risk IV access (20 points). Assessment: 23:48 General: Appears in no apparent distress. Behavior is calm, cooperative, appropriate lp1 for age. Pain: Complains of pain in abdomen and right lower quadrant Pain radiates to back. Neuro: No deficits noted. Neuro: Level of Consciousness is Oriented to person, place, time, situation, Appropriate for age. 05/22 01:00 Reassessment:. lp1 Vital Signs: 05/21 22:04 Pulse 54; Resp 20; Temp 97.5(TE); Pulse Ox 100% on R/A; Weight 98.88 kg (R); Height 5 kg ft. 5 in. (165.10 cm); Pain 04/20; 05/22 01:13 BP 106 / 54; Pulse 79; Resp 18; Pulse Ox 100% on R/A; lp1 05/21 22:04 Body Mass Index 36.28 (98.88 kg, 165.10 cm) kg ED Course: 05/21 21:53 Patient arrived in ED. cf2 22:05 Triage completed. kg 22:07 Arm band placed on right wrist. kg 23:05 Lorenzo Huerta PA is PHCP. jr8 23:05 Rodo Jordan MD is Attending Physician. jr8 23:48 No apparent distress. lp1 23:48 Patient has correct armband on for positive identification. Bed in low position. Call lp1 light in reach. Side rails up X 1. Side rails up X2. 23:48 No provider procedures requiring assistance completed. Inserted saline lock: 20 gauge lp1 in right antecubital area, using aseptic technique. 08 00:18 Chani Balderrama, RN is Primary Nurse. lp1 01:24 CT Abd/Pelvis - IV Contrast Only In Process Unspecified. EDMS 02:23 Coy Vazquez MD is Referral Physician. jr8 03:52 IV discontinued, bleeding controlled. lp1 Administered Medications: 00:11 Drug: morphine 4 mg Route: IVP; Site: right antecubital; lp1 00:19 Follow up: Response: No adverse reaction lp1 00:11 Drug: Zofran (Ondansetron) 4 mg Route: IVP; Site: right antecubital; lp1 00:19 Follow up: Response: No adverse reaction lp1 01:16 Follow up: Response: No adverse reaction lp1 03:15 Drug: GI Cocktail without - (Maalox Suspension 30 ml, Lidocaine Liquid 2 % 15 lp1 ml) Route: PO; 03:53 Follow up: Response: No adverse reaction lp1 Outcome: 02:23 Discharge ordered by . jr8 03:42 Patient left the ED. lp1 03:52 Discharged to home ambulatory. lp1 03:52 Condition: stable 03:52 Discharge instructions given to patient, significant other, Instructed on discharge instructions, medication usage, Demonstrated understanding of instructions, follow-up care, medications, Prescriptions given X 3. Signatures: Dispatcher [employer] EDGA Chani Balderrama, RN RN lp1 Lorenzo Huerta PA PA jr8 Chad Pereyra cf2 Toshia Hdz RN RN kg
[2021-05-22] MEDS ORDERED: MAGNES/ALUMIN/SIMET 30ML UCUP ONE (03:34)
[2021-05-22] MEDS ORDERED: LIDOCAINE VISCOUS 2% SOLN 15 ML UDC ONE (03:34)
[2021-05-22 04:14] VITALS: TEMP 97.5; O2SAT 100
[2021-05-22 04:18] VITALS: BP 106/54
--- NOTE | 2021-05-22 11:35 | RAD REPORT ---
EXAM DESCRIPTION: CT - Abdomen Pelvis W Contrast - 05/22/2021 6:08 am CLINICAL HISTORY: 41 years Female ABD PAIN TECHNIQUE: Contiguous axial images obtained through the abdomen and pelvis during and after intraven ous contrast administration. Coronal and sagittal reformatted images provided. This CT exam was performed according to our departmental dose-optimization program, which includes on e or more of the following dose reduction techniques: automated exposure control, adjustment of the m A and/or kV according to patient size, and/or use of iterative reconstruction technique. COMPARISON: No prior exams provided for comparison. FINDINGS: There is steatosis of the liver, which is moderately enlarged without focal lesion. Prior cholecystectomy without biliary dilatation. The lung bases, pancreas, spleen, adrenal glands, kidneys, urinary bladder, and osseous structures ar e normal. Prior hysterectomy. There is no bowel inflammation, obstruction, free intraperitoneal air, or ascites. The appendix is no rmal. IMPRESSION: Steatosis of the liver, which is enlarged without focal lesion. No other abnormalities in the abdomen or pelvis. Electronically signed by: Annette Agarwal MD 05/22/2021 1:42 AM CDT Due to temporary technical issues with the PACS/Fluency reporting system, reports are being signed by the in house radiologist without review as a courtesy to ensure prompt reporting. The interpreting r adiologist is fully responsible for the content of the report.
== END 2021-05-22 03:42 | disposition home or self-care (01) ==
LOC: ER 20:59
DX: R10.13 Epigastric pain (principal); F32.9 Major depressive disorder, single episode, unspecified
CPT/HCPCS: 85025; 80048; 36415; 81025; 80076; 81003; 83690; 74177; 96375; 96374; 99284; Q9967; J2405